=== PATIENT | female | born 1955 ===

== ENCOUNTER 2019-07-15 19:16 | Emergency (ER) | payer OTHER ==
[2019-07-15 20:09] LABS: #Eosinphils 0.2 thou/uL (0.0-0.7); #Lymphocytes 1.3 thou/uL (1.20-3.40); #Monocytes 0.7 thou/uL (0.11-0.59); #Neutrophils 6.5 thou/uL (1.40-6.50); %Basophils 0.1 % (0.0-1.0); %Lymphocytes 14.8 % (21.0-51.0); %Neutrophils 75.1 % (42.0-75.0); Hemoglobin 13.1 g/dL (12.0-16.0); Mean Corpuscular Hemoglobin 32.4 pg (27.0-31.0); Mean Corpuscular Volume 95.2 fL (78.0-98.0); Mean Platelet Volume 7.6 fL (7.4-10.4); Platelet Count 146 thou/uL (130-400); RBC Distribution Width 13.4 % (11.5-14.5); Red Blood Cell (RBC) Count 4.05 mill/uL (4.20-5.40); White Blood Cell (WBC) Count 8.6 thou/uL (4.8-10.8)
[2019-07-15] MEDS ORDERED: Morphine 4 MG/ML VIAL ONE ×2 (20:19→22:04)
[2019-07-15] MEDS ORDERED: Ondansetron PF 4 MG/2 ML Vial ONE (20:19)
[2019-07-15 20:41] LABS: ALT (SGPT) 10 U/L (8-55); AST (SGOT) 18 U/L (5-34); Albumin 4.6 g/dL (3.4-4.8); Alkaline Phosphatase 84 U/L (40-110); BUN (Urea Nitrogen) 13 mg/dL (9.8-20.1); Bilirubin, Total 0.4 mg/dL (0.2-1.2); CK (CPK) 429 U/L (29-168); Calc. Creatinine Clearance 0 mL/min (70-130); Calcium 9.6 mg/dL (7.8-10.44); Carbon Dioxide 23 mmol/L (23-31); Estimated GFR-MDRD 48; Globulin 2.1 g/dL (2.4-3.5); Glucose 99 mg/dL (80-115); Magnesium 2.1 mg/dL (1.6-2.6); Protein, Total 6.7 g/dL (6.0-8.3)
[2019-07-15 21:30] LABS: Anion Gap 15 mmol/L (10-20); Chloride 108 mmol/L (98-107); Potassium 3.9 mmol/L (3.5-5.1); Sodium 140 mmol/L (136-145)
--- NOTE | 2019-07-15 21:34 | RAD ---
EXAM: RIGHT SHOULDER THREE VIEWS: 07/15/19 HISTORY: Right shoulder pain. 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 No fracture, dislocation or other significant acute o sseous process. POS: RRE
--- NOTE | 2019-07-15 22:11 | CT ---
CT HEAD WITHOUT IV CONTRAST COMPARISON: None HISTORY: Numbness left hand. Right shoulder pain with pain radiating into arm and neck. TECHNIQUE: Axial CT imaging at 5 mm intervals from vertex through skull base without contrast FINDINGS: Diminished attenuation is seen within the right parietal subcortical white matter which is nonspecifi c and could be related to chronic small vessel ischemic changes. No acute cortical infarction or hemorrhage is identified. No mass effect or midline shift is seen. Ventricular system is normal in si ze, shape, and position. Visualized paranasal sinuses are clear. Osseous structures appear intact. IMPRESSION: 1. Diminished attenuation in the right parietal subcortical white matter and to a lesser extent in th e right frontal subcortical white matter which is nonspecific but could be reflective of chronic small vessel ischemic changes. MRI would be more sensitive study of choice for evaluation of more rec ent white matter ischemic changes. No acute cortical infarction or hemorrhage is identified.
--- NOTE | 2019-07-15 22:24 | CT ---
EXAM: CT cervical spine PROVIDED CLINICAL HISTORY: Right shoulder pain. Numbness in left hand. TECHNIQUE: Contiguous axial CT images are obtained through the cervical spine from the skull base to the T2-3 le nay. Sagittal and coronal reformatted images are provided. COMPARISON: None FINDINGS: There is a tiny osseous density seen adjacent to the odontoid at the odontoid interspace with the lef t lateral mass of C1 vertebral body. This is thought to be related to tiny osseous excrescence as opposed to an avulsion injury. No definite acute fracture is seen involving the cervical spine, and t here is no traumatic subluxation identified. Scattered degenerative changes are seen in the cervical spine. No prevertebral soft tissue swelling apparent. Visualized lung apices appear clear. Visualized thyroid gland demonstrates a grossly normal nonenhanced CT appearance. IMPRESSION: No evidence for fracture or traumatic subluxation.
[2019-07-15] MEDS ORDERED: Lidocaine 4% Cream 5 GM TUBE w/ Tegaderm ONE (23:59)
[2019-07-16] MEDS ORDERED: Lidocaine 5% Patch TD SCH (00:15)
[2019-07-16] MEDS ORDERED: Lidocaine Patch Removal 1 EACH TOP SCH (12:15)
== END 2019-07-16 01:53 | disposition home or self-care (01) ==
LOC: ERS 19:16
DX: G56.91 Unspecified mononeuropathy of right upper limb (principal); R20.3 Hyperesthesia; E03.9 Hypothyroidism, unspecified; M06.9 Rheumatoid arthritis, unspecified; Z79.899 Other long term (current) drug therapy
CPT/HCPCS: 36416; 70450; 72125; 80053; 82550; 83735; 84484; 85025; 93005; 96374; 96375; 96376; J2270; J2405